=== PATIENT | female | born 1950 | race Caucasian/White ===

== ENCOUNTER 2021-01-07 11:52 | Observation (INO) | payer MEDICARE ==
[~2021-01-07] VITALS: Ht 175.3 cm; Wt 71.3 kg
[2021-01-07] MEDS ORDERED: NITROGLYCERIN SINGLE TAB 0.4 MG SL ONE (12:14)
[2021-01-07] MEDS ORDERED: SODIUM CHLORIDE FLUSH 10ML SYR IVF ONE (12:30)
[2021-01-07] MEDS ORDERED: NITROGLYCERIN SINGLE TAB 0.4 MG SL PRN (12:30)
--- NOTE | 2021-01-07 12:30 | NUR ---
PT TOLERATING NITRO. BP NOW 93/57
--- NOTE | 2021-01-07 12:31 | NUR ---
PT C/0 OF CHEST PAIN DESCRIBING TIGHTNESS. STATES IT BEGAN YESTERDAY AND IT WOKE PT UP A FEW TIMES. TOOK PEPTO BISMO AND TUMS ITH SLIGHT RELIEF. CONTINUED INTO TODAY SO PT SOUGHT TO COME TO ED. ASSICIATION WITH NAUSEA AND RIGHT JAW PAIN. NO CURRENT SOB OR NUMBESS AND TINGLING.
[2021-01-07 12:33] LABS: BASOPHILS % (AUTO) 1 % (0-1); EOSINOPHILS % (AUTO) 2 % (1-7); LYMPHOCYTES % (AUTO) 26 % (22-44); MEAN CORPUSCULAR HEMOGLOBIN 31.1 pg (27.0-34.8); MEAN CORPUSCULAR HGB CONC 33.5 g/dL (32.4-35.8); MEAN PLATELET VOLUME 7.8 fL (7.4-10.4); MONOCYTES % (AUTO) 9 % (2-9); NEUTROPHILS % (AUTO) 63 % (42-75); PLATELET COUNT 386 x10^3/uL (130-400); RED BLOOD COUNT 4.66 x10^6/uL (3.82-5.3); RED CELL DISTRIBUTION WIDTH 13.7 % (9.6-15.2)
[2021-01-07 12:35] LABS: MD NO
[2021-01-07 12:46] LABS: ALBUMIN 3.6 g/dL (3.4-5.0); ANION GAP 5 mmol/L (5-15); CHLORIDE 106 mmol/L (98-107)
[2021-01-07 12:51] LABS: ALANINE AMINOTRANSFERASE 16 U/L (12-78); ALKALINE PHOSPHATASE 64 U/L (45-117); BILIRUBIN,TOTAL 0.3 mg/dL (0.2-1.0); CREATININE 0.95 mg/dL (0.55-1.02); TOTAL PROTEIN 7.3 g/dL (6.4-8.2); TROPONIN I < 0.015 ng/mL (0.000-0.045)
--- NOTE | 2021-01-07 13:14 | NUR ---
REPORT GIVEN TO ZACKERY KURTZ
[2021-01-07] MEDS ORDERED: HYDROcodone/APAP 5/325 TABLET ONE (13:52)
[2021-01-07] MEDS ORDERED: HYDROcodone/APAP 5/325 TABLET PO ONE (14:00)
[2021-01-07] MEDS ORDERED: LABETALOL 5MG/ML, 20ML IVPush PRN (14:30)
[2021-01-07] MEDS ORDERED: ENALAPRILAT 1.25 MG/ML, 2ML IVPush PRN (14:30)
[2021-01-07] MEDS ORDERED: NITROGLYCERIN 0.4 MG BOTTLE (25 TABS) SL PRN (14:30)
[2021-01-07] MEDS ORDERED: MAALOX/HYOSCYAMINE/LIDOCAINE 45 ML BTL PO ONE (14:30)
[2021-01-07] MEDS ORDERED: MELATONIN 5 MG TABLET PO PRN (14:30)
[2021-01-07] MEDS ORDERED: MAALOX/HYOSCYAMINE/LIDOCAINE 45 ML BTL PO PRN (14:30)
[2021-01-07] MEDS ORDERED: ONDANSETRON ODT 4 MG PO PRN (14:30)
[2021-01-07] MEDS ORDERED: ACETAMINOPHEN 325 MG TABLET PO PRN (14:30)
[2021-01-07] MEDS ORDERED: DOCUSATE 100 MG CAPSULE PO PRN (14:30)
[2021-01-07] MEDS: ENOXAPARIN 40 MG/0.4 ML SQ SCH (14:30)
[2021-01-07] MEDS ORDERED: ONDANSETRON 2MG/ML, 2ML IVPush PRN (14:30)
[2021-01-07 15:15] VITALS: BP 118/74
[2021-01-07] MEDS ORDERED: GABA600T7 PO (15:54)
[2021-01-07] MEDS: GABAPENTIN 300 MG CAPSULE PO SCH ×2 (16:51→20:45)
[2021-01-07 18:25] LABS: TROPONIN I < 0.015 ng/mL (0.000-0.045)
[2021-01-07 20:42] VITALS: BP 103/64
[2021-01-07] MEDS: FAMOTIDINE 20 MG TABLET PO SCH (20:45)
[2021-01-08 00:47] VITALS: BP 97/63
[2021-01-08 01:09] LABS: TROPONIN I < 0.015 ng/mL (0.000-0.045)
[2021-01-08 05:39] LABS: CHOL/HDL RATIO 4.3; LDL/HDL RATIO 2.5 (0.5-3.0)
[2021-01-08] MEDS: GABAPENTIN 300 MG CAPSULE PO SCH ×4 (06:25→20:26)
[2021-01-08] MEDS: ASPIRIN 81 MG TABLET EC PO SCH (06:25)
[2021-01-08 07:02] VITALS: BP 87/52
[2021-01-08] MEDS ORDERED: HYDROcodone/APAP 5/325 TABLET PO PRN (08:00)
[2021-01-08] MEDS: FAMOTIDINE 20 MG TABLET PO SCH ×2 (08:05→20:26)
[2021-01-08 13:26] VITALS: BP 104/69
[2021-01-08] MEDS: ENOXAPARIN 40 MG/0.4 ML SQ SCH (14:48)
[2021-01-08 18:29] VITALS: BP 102/62
[2021-01-09 00:03] VITALS: BP 104/67
[2021-01-09] MEDS: ASPIRIN 81 MG TABLET EC PO SCH (06:15)
[2021-01-09] MEDS: GABAPENTIN 300 MG CAPSULE PO SCH ×2 (06:16→10:41)
[2021-01-09 07:45] VITALS: BP 101/67
[2021-01-09] MEDS: FAMOTIDINE 20 MG TABLET PO SCH (08:36)
[2021-01-09] MEDS: ENOXAPARIN 40 MG/0.4 ML SQ SCH (14:30)
[2021-01-09] MEDS ORDERED: ASPI81TA45 PO (14:32)
[2021-01-09] MEDS ORDERED: ATOR20TA PO (14:32)
[2021-01-09] MEDS ORDERED: OMEP20TA9 PO (14:32)
[2021-01-09] MEDS ORDERED: NITR0.4T28 SL (14:32)
[2021-01-09 14:53] VITALS: BP 95/62
== END 2021-01-09 16:00 | disposition home or self-care (01) ==
LOC: ED 13:06 → EDIP 14:15 → 5SO 14:57 → DCLOUNGE 01-09 15:49
PROVIDERS: ADMIT Internal Medicine; ATTEND Hospitalist
DX: R07.89 Other chest pain (principal); G89.29 Other chronic pain; M54.5 Low back pain; E78.5 Hyperlipidemia, unspecified; I10 Essential (primary) hypertension; F17.210 Nicotine dependence, cigarettes, uncomplicated; Z90.710 Acquired absence of both cervix and uterus; Z79.899 Other long term (current) drug therapy; Z87.11 Personal history of peptic ulcer disease; Z79.82 Long term (current) use of aspirin; Z98.1 Arthrodesis status
CPT/HCPCS: 36415; 71045; 78452; 80053; 80061; 83690; 84484; 85025; 85379; 93005; 93017; 96372; 99285; A9502; G0378; J1650

== ENCOUNTER 2021-02-09 11:50 | Day surgery (SDC) | payer MEDICARE ==
[~2021-02-09] VITALS: Ht 175.3 cm; Wt 80.0 kg
[~2021-02-09 11:50] MED LIST: ASPI81TA45 PO; ATOR20TA PO; GABA600T7 PO; NITR0.4T28 SL; OMEP20TA9 PO
[2021-02-09] MEDS ORDERED: methylPREDNISolone SOD SUCC 125 MG/2 ML IVPush ONE (12:30)
[2021-02-09] MEDS ORDERED: DIPHENHYDRAMINE 50 MG/ML, 1ML IVPush ONE (12:30)
[2021-02-09] MEDS ORDERED: HYDR-2214 PO (12:42)
[2021-02-09 12:45] LABS: BASOPHILS % (AUTO) 1 % (0-1); EOSINOPHILS % (AUTO) 2 % (1-7); LYMPHOCYTES % (AUTO) 28 % (22-44); MEAN CORPUSCULAR HEMOGLOBIN 31.6 pg (27.0-34.8); MEAN CORPUSCULAR HGB CONC 33.9 g/dL (32.4-35.8); MEAN PLATELET VOLUME 8.2 fL (7.4-10.4); MONOCYTES % (AUTO) 8 % (2-9); NEUTROPHILS % (AUTO) 61 % (42-75); PLATELET COUNT 343 x10^3/uL (130-400); RED BLOOD COUNT 4.64 x10^6/uL (3.82-5.3); RED CELL DISTRIBUTION WIDTH 13.8 % (9.6-15.2)
[2021-02-09 12:52] LABS: ANION GAP 5 mmol/L (5-15); CALCIUM 8.8 mg/dL (8.5-10.1); CHLORIDE 110 mmol/L (98-107); MD NO
[2021-02-09] MEDS ORDERED: ALPR0.5T7 PO (12:52)
[2021-02-09] MEDS ORDERED: ESTR1TAB15 PO (12:52)
[2021-02-09 12:53] LABS: CREATININE 0.87 mg/dL (0.55-1.02); INTERNATIONAL NORMALIZED RATIO 0.97 (0.93-1.1); PROTHROMBIN TIME 10.4 Seconds (9.6-11.5)
[2021-02-09 12:54] VITALS: BP 136/64
[2021-02-09] MEDS ORDERED: DIPHENHYDRAMINE 50 MG/ML, 1ML ONE (13:03)
[2021-02-09] MEDS ORDERED: methylPREDNISolone SOD SUCC 125 MG/2 ML ONE (13:03)
[2021-02-09] MEDS ORDERED: FENTANYL PF 100 MCG/2ML ONE (13:58)
[2021-02-09] MEDS ORDERED: VERAPAMIL 2.5 MG/ML, 2ML ONE (13:58)
[2021-02-09] MEDS ORDERED: MIDAZOLAM 1 MG/ML, 2ML ONE (13:58)
[2021-02-09] MEDS ORDERED: HEPARIN 1,000 UNITS/ML, 10ML ONE (13:58)
[2021-02-09] MEDS ORDERED: LIDOCAINE-MPF 1%, 5ML ONE (13:58)
[2021-02-09] MEDS ORDERED: SODIUM CHLORIDE 0.9% 1,000 ML IV SCH (15:00)
== END 2021-02-09 16:11 | disposition home or self-care (01) ==
LOC: CACL 11:50
PROVIDERS: ATTEND Internal Medicine Cardiovascular Disease
DX: R07.89 Other chest pain (principal); R94.39 Abnormal result of other cardiovascular function study; I34.0 Nonrheumatic mitral (valve) insufficiency; I36.1 Nonrheumatic tricuspid (valve) insufficiency; F17.211 Nicotine dependence, cigarettes, in remission; Z88.3 Allergy status to other anti-infective agents; Z79.899 Other long term (current) drug therapy
CPT/HCPCS: 36415; 80048; 85025; 85610; 85730; 93306; 93458; 99156; C1769; C1894; J1200; J1644; J2250; J2930; J3010; Q9967